=== PATIENT | female | born 1980 | race Caucasian/White ===

== ENCOUNTER 2024-07-20 11:04 | Day surgery (SDC) | payer MEDICAID ==
[~2024-07-20] VITALS: Ht 157.5 cm; Wt 131.4 kg
[2024-07-20 12:04] VITALS: BP 115/66; PULSE 72; RESP 16
[2024-07-20] MEDS ORDERED: [UNRECOGNIZED DRUG - CODE] PO (12:50)
[2024-07-20] MEDS ORDERED: [UNRECOGNIZED DRUG - CODE] (12:50)
[2024-07-20] MEDS ORDERED: SEMA1.7P SUBCUT (12:50)
[2024-07-20] MEDS ORDERED: FAMO40TA58 PO (12:50)
[2024-07-20] MEDS ORDERED: midazolam 1 mg/ML 2ml injection ONE (13:25)
[2024-07-20] MEDS ORDERED: propofol inj 20 ML IV ONE (13:25)
[2024-07-20] MEDS ORDERED: fentaNYL/PF 50MCG/1 ML 2ML syringe ONE (13:25)
[2024-07-20 13:56] VITALS: BP 101/72; PULSE 72; RESP 21; O2SAT 96
[2024-07-20 14:00] VITALS: BP 123/70; PULSE 73; RESP 18; O2SAT 97
[2024-07-20 14:10] VITALS: BP 116/72; PULSE 68; RESP 12; O2SAT 99
[2024-07-20 14:20] VITALS: BP 126/71; PULSE 65; RESP 17; O2SAT 100
[2024-07-20 14:31] VITALS: BP 109/63; PULSE 71; RESP 13; O2SAT 97
--- NOTE | 2024-07-21 19:19 | PATHOLOGY REPORT ---
[facility] [address] [place] [address] SURGICAL PATHOLOGY REPORT CaseNumber: [id number] Surgeon:Eric Meyer M.D. CLINICAL INFORMATION CLINICAL INFORMATION: Abdominal pain in the left upper quadrant, functional dyspepsia, heartburn. DIAGNOSIS DIAGNOSIS: STOMACH, ANTRUM; BIOPSY - MILD CHRONIC GASTRITIS. MICROSCOPIC DESCRIPTION MICROSCOPIC DESCRIPTION: A single slide of the gastric antral biopsies, two, is reviewed. Present is mild chronic gastritis. The mucosa is intact without erosion or ulceration. There is no increase d number of intraepithelial lymphocytes or neutrophils. The lamina propria is expanded by a slight in creased content of fibrous tissue which distorts the glandular architecture to a slight extent. There is no malignancy. (st) GROSS DESCRIPTION GROSS DESCRIPTION: Received in a container of formalin labeled with the patient's name, number, and " antrum BX" are 2 pieces of [place] tissue both 0.2 cm. The specimen is entirely submitted as A1. The time at which the specimen was removed was 1344. The time at which the specimen was placed in formalin wa s 1344. Electronically signed by: Cachorro Balderas M.D. 07/21/2024 6:47:00 PM
== END 2024-07-20 14:35 | disposition home or self-care (01) ==
LOC: GI LAB 11:04
PROVIDERS: ATTEND Internal Medicine Gastroenterology
DX: R10.12 Left upper quadrant pain (principal); K21.00 Gastro-esophageal reflux disease with esophagitis, without bleeding; K31.89 Other diseases of stomach and duodenum; G47.30 Sleep apnea, unspecified; E11.9 Type 2 diabetes mellitus without complications; K29.50 Unspecified chronic gastritis without bleeding
CPT/HCPCS: 43239; 82948; J2250; J2704; J3010; J7030; Z7512